=== PATIENT | male | born 1960 | race Asian ===

== ENCOUNTER 2018-10-30 12:56 | Emergency (ER) | payer SELFPAY ==
[~2018-10-30] VITALS: Ht 167.6 cm; Wt 56.5 kg
[~2018-10-30 12:56] MED LIST: AMOX1TAB10 PO; NEOM28OI2 TP
[2018-10-30 13:01] VITALS: BP 154/72; PULSE 108; RESP 18; Ht 167.6 cm; Wt 56.5 kg
[2018-10-30] MEDS ORDERED: DIPHTH/TET/ACEL PERTUSS (ADULT) 0.5 ML VIAL IM* ONE (13:30)
== END 2018-10-30 14:03 | disposition home or self-care (01) ==
LOC: FTE 12:56
DX: S01.85XA Open bite of other part of head, initial encounter (principal); W54.0XXA Bitten by dog, initial encounter; Y92.9 Unspecified place or not applicable; Z23 Encounter for immunization
CPT/HCPCS: 90471; 90715